=== PATIENT | female | born 1955 | race Caucasian/White ===

== ENCOUNTER → 2018-04-12 | Outpatient (CLI) | payer OTHER ==
[~2018-04-12] VITALS: Ht 172.7 cm; Wt 96.3 kg
[~2018-04-12] MED LIST: CYCLOBENZAPRINE5 MG PO; IBUPROFEN 800800 MG PO; LIPITOR10 MG PO; NORCO 5-325 TA1 EACH PO; OMEPRAZOLE 20 M20 M1 PO; ONDANSETRON HCL4 M2 PO; PROZAC10 MG PO; PROZAC20 MG PO; WELLBUTRIN 100100 MG PO; WELLBUTRIN XL150 MG PO; XANAX 0.25 MG0.25 MG PO; XANAX 0.5 MG0.5 MG PO
--- NOTE | 2018-04-12 10:03 | NUR ---
Pain Clinic Assessment: 1. History of Osteoarthritis: NECK BACK KNEES History of Rheumatoid Arthritis: Not Applicable 2. Height: 5 ft. 8 in. 172.7 cm. Weight: 212.2 lb. oz. 96.253 kg. Patient's BMI: 3. Vital Signs: BP: Pulse: Resp: Temp: 02 Sat: ECG Mon: 4. Pain Intensity: 4 5. Fall Risk: Dizziness: Needs help standing or walking: Fallen in the last 3 months: Fall risk comments: 6. Patient on Blood Thinner: None 7. History of Hypertension: N 8. Opioid Therapy greater than 6 weeks: N Opiate Contract Signed: 9. Risk Assessment Tool Provided: LOW RISK 03/28 10. Functional Assessment Tool: 11. Recreational Drug Use: Never Drug Type: Tobacco Use: Never Smoker Tobacco Type: Amount or Packs/day: How Many Years: Alcohol Use: Yes Frequency: Weekly Quant: 4
[2018-04-12 11:42] VITALS: BP 125/68
--- NOTE | 2018-04-12 11:44 | NUR ---
Pain Clinic Assessment: 1. History of Osteoarthritis: NECK BACK KNEES History of Rheumatoid Arthritis: Not Applicable 2. Height: 5 ft. 8 in. 172.7 cm. Weight: 212.2 lb. oz. 96.253 kg. Patient's BMI: 32.3 3. Vital Signs: BP: 125/68 Pulse: 68 Resp: 16 Temp: 02 Sat: 95 ECG Mon: 4. Pain Intensity: 4 5. Fall Risk: Dizziness: Y Needs help standing or walking: N Fallen in the last 3 months: Y Fall risk comments: 6. Patient on Blood Thinner: None 7. History of Hypertension: N 8. Opioid Therapy greater than 6 weeks: N Opiate Contract Signed: 9. Risk Assessment Tool Provided: LOW RISK 03/28 10. Functional Assessment Tool: 11. Recreational Drug Use: Never Drug Type: Tobacco Use: Never Smoker Tobacco Type: Amount or Packs/day: How Many Years: Alcohol Use: Yes Frequency: Weekly Quant: 4
== END ==
LOC: PAIN 06:57
DX: M54.5 Low back pain (principal); M54.2 Cervicalgia; G89.29 Other chronic pain; R25.2 Cramp and spasm; Z72.89 Other problems related to lifestyle

== ENCOUNTER → 2018-04-19 | Outpatient (CLI) | payer OTHER ==
[~2018-04-19] VITALS: Ht 172.7 cm; Wt 92.0 kg
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
[2018-04-19 10:33] VITALS: BP 114/76
--- NOTE | 2018-04-19 10:47 | NUR ---
Pain Clinic Assessment: 1. History of Osteoarthritis: NECK BACK KNEES History of Rheumatoid Arthritis: Not Applicable 2. Height: 5 ft. 8 in. 172.7 cm. Weight: 202.8 lb. oz. 91.990 kg. Patient's BMI: 30.8 3. Vital Signs: BP: 114/76 Pulse: 72 Resp: 16 Temp: 02 Sat: 97 ECG Mon: 4. Pain Intensity: 2-3 5. Fall Risk: Dizziness: Y Needs help standing or walking: N Fallen in the last 3 months: N Fall risk comments: 6. Patient on Blood Thinner: None 7. History of Hypertension: N 8. Opioid Therapy greater than 6 weeks: N Opiate Contract Signed: 9. Risk Assessment Tool Provided: LOW RISK 03/28 10. Functional Assessment Tool: 11. Recreational Drug Use: Never Drug Type: Tobacco Use: Never Smoker Tobacco Type: Amount or Packs/day: How Many Years: Alcohol Use: Yes Frequency: Monthly Quant:
== END | disposition home or self-care (01) ==
LOC: PAIN 07:02
DX: M79.18 Myalgia, other site (principal); M47.896 Other spondylosis, lumbar region; J45.909 Unspecified asthma, uncomplicated; M19.90 Unspecified osteoarthritis, unspecified site; F41.9 Anxiety disorder, unspecified; F32.9 Major depressive disorder, single episode, unspecified; E66.09 Other obesity due to excess calories; Z96.651 Presence of right artificial knee joint; Z98.890 Other specified postprocedural states; Z68.30 Body mass index [BMI] 30.0-30.9, adult; Z79.899 Other long term (current) drug therapy; Z88.0 Allergy status to penicillin; Z88.8 Allergy status to other drugs, medicaments and biological substances; Z79.82 Long term (current) use of aspirin